=== PATIENT | male | born 2000 | race Caucasian/White ===

== ENCOUNTER 2022-02-02 15:59 | Emergency (ER) | payer BC ==
[~2022-02-02] VITALS: Ht 167.6 cm; Wt 93.9 kg
[2022-02-02 16:05] VITALS: BP 163/91
[2022-02-02] MEDS ORDERED: ONDANSETRON 4 MG/2 ML VIAL IVP ONE (16:25)
[2022-02-02] MEDS ORDERED: ALUMINUM HYD/MAG/SIMETHICONE 30 ML UDC PO ONE (16:25)
[2022-02-02] MEDS ORDERED: ACETAMINOPHEN EXTRA STRENGTH 500 MG TAB PO ONE (16:25)
[2022-02-02] MEDS ORDERED: NACL 0.9% 1,000 ML IV ONE (16:25)
[2022-02-02 16:40] LABS: BASOPHILS % (AUTO) 0.1 % (0.0-2.0); EOSINOPHILS % (AUTO) 0.1 % (0.0-4.0); HEMATOCRIT 44.6 % (36-52); HEMOGLOBIN 15.4 g/dL (12.0-18.0); LYMPHOCYTES # (AUTO) 1.1 K/uL (2.0-11.5); LYMPHOCYTES % (AUTO) 7.4 % (20.5-51.1); MEAN CORPUSCULAR HEMOGLOBIN 30 pg (27-31); MEAN CORPUSCULAR HGB CONC 35 g/dL (33-37); MONOCYTES # (AUTO) 0.9 K/uL (0.8-1.0); MONOCYTES % (AUTO) 6.3 % (1.7-9.3); NEUTROPHILS # (AUTO) 12.8 K/uL (1.8-7.7); NEUTROPHILS % (AUTO) 86.1 % (42.2-75.2); PLATELET COUNT (AUTO) 189 K/uL (140-450); RED BLOOD CELL COUNT(AUTO) 5.07 MIL/uL (4.20-6.10); RED CELL DISTRIBUTION WIDTH 13.2 % (11.6-13.7); WHITE BLOOD COUNT (AUTO) 14.9 K/uL (4.8-10.8)
--- NOTE | 2022-02-02 16:45 | NUR ---
PT AMBULATED TO ER BED 6
--- NOTE | 2022-02-02 16:55 | NUR ---
22 Y/O MALE C/O ABDOMINAL PAIN / DESCRIBES CRAMPING GENERALIZED, DIARRHEA AND INTERMITTENT FEVERS SINCE YESTERDAY. DENIES VOMITING. PT STATES NOTICING BLOOD IN STOOL TODAY. ABD IS SOFT, ROUND, NON-TENDER TO PALPATION, BOWEL SOUNDS ACTIVE X4, LAST BM 02/02/22. PMH: ASTHMA NKA
[2022-02-02 16:59] LABS: ALBUMIN 3.7 g/dL (3.4-5.0); ANION GAP 14.4 (8-16); CARBON DIOXIDE 26.3 mmol/L (21-32); CREATININE 1.1 mg/dL (0.6-1.3); POTASSIUM 3.7 mmol/L (3.5-5.1); TOTAL BILIRUBIN 0.9 mg/dL (0.0-1.0)
[2022-02-02] MEDS ORDERED: FAMO-90 PO (17:45)
[2022-02-02] MEDS ORDERED: ONDA-188 SL (17:45)
[2022-02-02] MEDS ORDERED: BEN10 PO (17:45)
[2022-02-02 17:59] VITALS: BP 154/84
--- NOTE | 2022-02-02 17:59 | NUR ---
Patient discharged with v/s stable. Written and verbal after care instructions given VIRAL GASTROENTERITIS AND DIARRHEA and explained. Patient alert, oriented and verbalized understanding of instructions. Ambulatory with steady gait. All questions addressed prior to discharge. ID band removed. Patient advised to follow up with PMD. Rx of PEPCID, ZOFRAN, AND BENTYL given. Patient educated on indication of medication including possible reaction and side effects. Opportunity to ask questions provided and answered.
== END 2022-02-02 17:59 | disposition home or self-care (01) ==
LOC: MED 15:59
DX: A08.4 Viral intestinal infection, unspecified (principal); R19.7 Diarrhea, unspecified; R00.0 Tachycardia, unspecified; Z79.899 Other long term (current) drug therapy
CPT/HCPCS: 36415; 80053; 81002; 85025; 96361; 96374; 99283; J2405; J7030